=== PATIENT | male | born 1965 | race Caucasian/White ===

== ENCOUNTER 2020-10-09 09:08 | Emergency (ER) | payer OTHER ==
[2020-10-09 21:14] LABS: SARS-CoV-2 PCR by NAA Not Detected (NotDetected)
== END 2020-10-09 11:52 | disposition expired ==
LOC: NAV ERS 09:08
DX: I46.9 Cardiac arrest, cause unspecified (principal); Z20.822 Contact with and (suspected) exposure to COVID-19; J45.909 Unspecified asthma, uncomplicated
CPT/HCPCS: 99285; U0003; U0005